=== PATIENT | female | born 1985 ===

== ENCOUNTER 2021-11-28 16:50 | Emergency (ER) | payer SELFPAY ==
[~2021-11-28] VITALS: Ht 162.6 cm; Wt 90.9 kg
[2021-11-28 16:53] VITALS: BP 134/68
[2021-11-28] MEDS ORDERED: LURA20TA PO (17:22)
[2021-11-28] MEDS ORDERED: CLON0.2T PO (17:22)
[2021-11-28] MEDS ORDERED: DIVA-85 PO (17:22)
== END 2021-11-28 18:49 | disposition left against medical advice (07) ==
LOC: EMS 17:02
DX: Z00.00 Encounter for general adult medical examination without abnormal findings (principal); Z53.21 Procedure and treatment not carried out due to patient leaving prior to being seen by health care provider